=== PATIENT | female | born 1990 | race Caucasian/White ===

== ENCOUNTER 2019-09-16 04:54 | Inpatient (IN) | payer OTHER ==
[2019-09-14 10:43] LABS: ABSOLUTE EOSINOPHILS # (AUTO) 0.1 10^3/uL (0.0-0.6); ABSOLUTE LYMPHOCYTES (AUTO) 1.2 10^3/uL (0.5-4.7); ABSOLUTE MONOCYTES (AUTO) 0.3 10^3/uL (0.1-1.4); ABSOLUTE NEUT (AUTO) 5.7 10^3/uL (1.7-8.2); BASOPHILS % (AUTO) 0.4 % (0-2); EOSINOPHILS % (AUTO) 0.7 % (0-6); HEMATOCRIT 32.8 % (36.0-47.0); HEMOGLOBIN 10.7 g/dL (12.0-15.5); MEAN CORPUSCULAR HGB CONC 32.6 g/dL (32.0-36.0); MEAN CORPUSCULAR VOLUME 80 fl (80-97); MONOCYTES % (AUTO) 4.5 % (3-13); PLATELET COUNT 216 10^3/uL (150-450); RED BLOOD COUNT 4.11 10^6/uL (3.72-5.28); RED CELL DISTRIBUTION WIDTH 14.6 % (11.5-14.0); SEGMENTED NEUTROPHILS % (AUTO) 78.4 % (42-78); TOTAL CELLS COUNTED % (AUTO) 100 %; WHITE BLOOD COUNT 7.2 10^3/uL (4.0-10.5)
[2019-09-14 10:52] LABS: APPEARANCE,URINE CLOUDY; BILIRUBIN,URINE NEGATIVE (NEGATIVE); CALCIUM OXALATE CRYSTALS,URINE TOO NUMEROUS TO CNT /HPF; COLOR,URINE YELLOW; GLUCOSE, URINE NEGATIVE (NEGATIVE); KETONES,URINE NEGATIVE (NEGATIVE); LEUKOCYTE ESTERASE,URINE LARGE (NEGATIVE); NITRITE,URINE NEGATIVE (NEGATIVE); PROTEIN,URINE 30 mg/dL (NEGATIVE); URINE SPECIFIC GRAVITY 1.024
[2019-09-14 11:05] LABS: URINE AMPHETAMINES SCREEN NEGATIVE; URINE BARBITURATES SCREEN NEGATIVE; URINE BENZODIAZEPINES SCREEN NEGATIVE; URINE COCAINE SCREEN NEGATIVE; URINE MARIJUANA (THC) SCREEN NEGATIVE; URINE METHADONE SCREEN NEGATIVE; URINE PHENCYCLIDINE SCREEN NEGATIVE
[2019-09-16] MEDS ORDERED: RINGERS SOLUTION,LACTATED 1,000 ML IV PRN ×2 (05:00→09:01)
[2019-09-16] MEDS ORDERED: LACTATED RINGERS 1000 ML IV PRN (05:00)
[2019-09-16] MEDS ORDERED: CEFAZOLIN SODIUM 2 GM in DEXTROSE 5%-WATER 100 ML IV PRN (05:00)
[2019-09-16] MEDS ORDERED: LIDOCAINE 0.5% INJ-PF (5 MG/ML) 50 ML SDV SUBCUT PRN (05:00)
[2019-09-16] MEDS ORDERED: OXYTOCIN 10 UNIT/ML VIAL ONE (07:36)
[2019-09-16] MEDS ORDERED: FENTANYL CITRATE INJ/PF 100 MCG/2 ML AMPUL ONE (07:36)
[2019-09-16] MEDS ORDERED: MORPHINE SULFATE 10 MG/ML INJ ONE (07:37)
[2019-09-16] MEDS ORDERED: ONDANSETRON HCL INJ/PF 4 MG/2 ML SDV ONE (07:37)
[2019-09-16] MEDS ORDERED: MIDAZOLAM 2 MG/2 ML INJ ONE (07:37)
[2019-09-16] MEDS ORDERED: OXYTOCIN/NORMAL SALINE 20 UNIT/1,000 ML RTUINJ ONE ×2 (07:37→09:01)
[2019-09-16] MEDS ORDERED: ACETAMINOPHEN 1,000 MG/100 ML RTUPB IV PRN (09:01)
[2019-09-16] MEDS ORDERED: PROMETHAZINE HCL INJ 25 MG/1 ML VIAL IV PRN (09:01)
[2019-09-16] MEDS ORDERED: ACETAMINOPHEN 325 MG TABLET PO PRN (09:01)
[2019-09-16] MEDS ORDERED: HYDROMORPHONE HCL INJ/PF 2 MG/ML AMPULE IV PRN (09:01)
[2019-09-16] MEDS ORDERED: OXYTOCIN/NORMAL SALINE 20 UNIT/1,000 ML RTUINJ IV PRN (09:01)
--- NOTE | 2019-09-16 09:05 | PDOC DELIVERY SUMMARY ---
Delivery Summary - Maternal Hx : II Hx Para: I Hx # Term Pregnancies: 2 Number of Living Children: 1 LUPE: 09/22/19 Gestational Age: 39.0 Risk Factors: Other - macrosomia Ruptured Membranes: AROM Time of Rupture: 08:10 - Delivery Labor: Not In Labor Presentation: Vertex Heart Rate Monitoring: Externally Uterine Contraction Monitoring: External Support Person Present: Yes - PRESENT FOR DELIVERY Location: LD : Scheduled Placenta Description: normal appearing Number of Vessels (Cord): 3 Nuchal Cord: No Delivery of Placenta Date: 09/16/19 Delivery of Placenta Time: 08:25 Delivery Quantitative Blood Loss (QBL): 800 - Medications Type of Anesthesia:: Spinal - Assess and Care Baby 1 Male Delivery of Infant Date: 09/16/19 Delivery of Infant Time: 08:15 at 1 minute: 8 at 5 minutes: 9 Infant Delivery Weight: 4,725 Delivery Length: 21 in - Delivery Personnel Nursery RN: LORENZO BEATTY MD: ZAN TOLEDO
--- NOTE | 2019-09-16 09:10 | Operative Report ---
Operative Report DATE OF SURGERY: 09/16/19 PREOPERATIVE DIAGNOSIS: 1. Intrauterine at 39-0/7 weeks. 2. Suspec dianna macrosomia. 3. GBS negative. 4. Rh-. 5. Rubella immune. 6. Anemia POSTOPERATIVE DIAGNOSIS: Same OPERATION: Primary low transverse section SURGEON: ZAN RORDIGEZ ANESTHESIA: Spinal TISSUE REMOVED OR ALTERED: Placenta COMPLICATIONS: None QUANTITATIVE BLOOD LOSS: 800 INTRAOPERATIVE FINDINGS: Male fetus in a cephalic position; vacuum assisted delivery; Apgars 8 at 1, 9 at 5 with a weight of 10 pounds 2 ounces; normal-appearing uterus, bilateral tubes and ovaries PROCEDURE: The patient was taken to the operating room where spinal anesthesia was obtained and found to be adequate. She was then prepped and draped in the normal sterile fashion and placed in the dorsal supine position with a leftward tilt. A Pfannenstiel skin incision was then made and carried through to the underlying layers of the fascia with the scalpel. The fascia was incised in the midline and the incision extended laterally with the Michelle scissors. The superior aspect of the fascial incision was then grasped with Gianna clamps elevated and the underlying rectus muscles dissected off both bluntly and sharply. Attention was then turned to the inferior aspect of the fascial incision which in a similar fashion was grasped, tented up with Gianna clamps, and the rectus muscles dissected off both bluntly and sharply. The rectus muscles were then in the midline and the peritoneum was identified and entered both sharply and bluntly. The peritoneal incision was then extended superiorly and inferiorly with good visualization of the bladder. The bladder blade was inserted and the vesicouterine peritoneum identified grasped with Congolese pickups and entered sharply with the Metzenbaum scissors. This incision was then extended laterally with the Metzenbaum scissors and a bladder flap created digitally. The bladder blade was then reinserted and the lower uterine segment incised in a transverse fashion with the scalpel. The uterine incision was then extended bluntly and with the bandage scissors. The bladder blade was removed and the infant's head was delivered from cephalic presentation atraumatically, with the assistance of a vacuum. The cord doubly clamped and cut. The was handed off to waiting round up ring hand. The placenta was then delivered manually and the uterus exteriorized and cleared of all clots and debris. The uterine incision was then repaired with 0 Vicryl in a running locked fashion. 0-Chromic was used to obtain hemostasis via imbrication of the initial layer. The bladder flap was not repaired and a piece of Surgicel was placed in the area. The uterus was returned to the patient's abdomen and Interceed was placed overlying the uterine incision, as well as a piece placed vertically on the anterior surface of the uterus, to prevent adhesions. The gutters were cleared of all clots and debris. The peritoneum was then closed in a running fashion with 2-0 Vicryl. All operative sites were noted to be hemostatic. The fascia was reapproximated with 0 Vicryl in a running fashion from each lateral edge to the midline. The subcutaneous fat layer was then closed in an interrupted fashion with 3-0 vicryl. The skin was closed with 4-0 Monocryl in a running, subcuticular fashion. The patient tolerated the procedure well. Sponge, lap, needle and instrument counts are correct x 2. 2 g of Ancef were given prior to skin incision. The patient was taken to the recovery area awake and in stable condition.
[2019-09-16] MEDS ORDERED: ACETAMINOPHEN 1,000 MG/100 ML RTUPB IV ONE (09:44)
[2019-09-16] MEDS ORDERED: PHENYLEPHRINE HCL INJ/PF 10 MG/1 ML SDV ONE (09:46)
[2019-09-16] MEDS ORDERED: KETOROLAC TROMETHAMINE INJ/PF 30 MG/1 ML SDV ONE (10:14)
[2019-09-16] MEDS: KETOROLAC TROMETHAMINE INJ/PF 30 MG/1 ML SDV IV SCH ×2 (10:15→17:48)
[2019-09-16] MEDS: PRENATAL VITAMIN W DHA CAPSULE PO SCH (14:19)
[2019-09-16] MEDS: DOCUSATE SODIUM 100 MG CAPSULE PO SCH ×2 (14:19→17:47)
[2019-09-16] MEDS: OXYCODONE-ACETAMINOPHEN 5-325 MG TABLET PO PRN (23:14)
[2019-09-17] MEDS: KETOROLAC TROMETHAMINE INJ/PF 30 MG/1 ML SDV IV SCH (02:55)
[2019-09-17 06:57] LABS: HEMATOCRIT 25.8 % (36.0-47.0); MEAN CORPUSCULAR HEMOGLOBIN 26.1 pg (27.0-33.4); MEAN CORPUSCULAR HGB CONC 32.5 g/dL (32.0-36.0); MEAN CORPUSCULAR VOLUME 80 fl (80-97); PLATELET COUNT 167 10^3/uL (150-450); RED BLOOD COUNT 3.21 10^6/uL (3.72-5.28); RED CELL DISTRIBUTION WIDTH 14.9 % (11.5-14.0); WHITE BLOOD COUNT 8.9 10^3/uL (4.0-10.5)
[2019-09-17 07:00] LABS: HEMOGLOBIN 8.4 g/dL (12.0-15.5)
--- NOTE | 2019-09-17 09:07 | PDOC PROGRESS REPORT ---
Subjective-OB Progress Note for:: 09/17/19 Subjective: Doing well, no c/o, , OOB in room , eating bkf Physical Exam (OB) Vital Signs: Temp Pulse Resp BP Pulse Ox 98.7 F 69 16 119/64 99 09/17/19 07:26 09/17/19 07:26 09/17/19 07:26 09/17/19 07:26 09/17/19 07:26 Intake & Output 09/16/19 09/17/19 09/18/19 06:59 06:59 06:59 Intake Total 1100 Output Total 1700 Balance -600 - PIH/Pre-Eclampsia DTR's: 1 + Clonus: Negative Headache: Absent Epigastric Pain: No Visual Changes: No - Dressing Removed: No Incision: Dressing, Well Approximated Closure Type: op site - Lochia Lochia Amount: Scant < 10 ml Lochia Color: Rubra/Red - Abdomen Description: Soft Hernia Present: No Fundal Description: Firm, Midline Fundal Height: u/u - u/2 Objective-Diagnostic Laboratory: 09/17/19 05:54 09/17/19 05:54 WBC 8.9 RBC 3.21 L Hgb 8.4 L D Hct 25.8 L MCV 80 MCH 26.1 L MCHC 32.5 RDW 14.9 H Plt Count 167 Assessment and Plan(PN) - Assessment and Plan (1) Anemia Qualifiers: Other causes of anemia: acute posthemorrhagic Is this a current diagnosis for this admission?: Yes (2) Macrosomia Is this a current diagnosis for this admission?: Yes (3) S/P primary low transverse Is this a current diagnosis for this admission?: Yes - Time Spent with Patient Time with patient: Less than 15 minutes Medications reviewed and adjusted accordingly: Yes - Disposition Anticipated Discharge: Home Within: within 24 hours
[2019-09-17] MEDS: DOCUSATE SODIUM 100 MG CAPSULE PO SCH ×2 (09:19→17:17)
[2019-09-17] MEDS: IBUPROFEN 800 MG TABLET PO SCH ×3 (09:19→20:50)
[2019-09-17] MEDS: PRENATAL VITAMIN W DHA CAPSULE PO SCH (09:19)
[2019-09-17] MEDS: OXYCODONE-ACETAMINOPHEN 5-325 MG TABLET PO PRN ×3 (09:21→20:53)
[2019-09-17] MEDS ORDERED: IRON SUCROSE COMPLEX INJ/PF 100 MG/5 ML SDV IV ONE (10:00)
[2019-09-17] MEDS: SIMETHICONE 80 MG TAB.CHEW PO PRN ×2 (15:31→21:33)
[2019-09-18] MEDS: IBUPROFEN 800 MG TABLET PO SCH ×2 (02:11→08:37)
[2019-09-18] MEDS: OXYCODONE-ACETAMINOPHEN 5-325 MG TABLET PO PRN (07:46)
[2019-09-18] MEDS: DOCUSATE SODIUM 100 MG CAPSULE PO SCH (09:30)
[2019-09-18] MEDS: PRENATAL VITAMIN W DHA CAPSULE PO SCH (09:30)
--- NOTE | 2019-09-18 10:05 | PDOC PROGRESS REPORT ---
Subjective-OB Progress Note for:: 09/18/19 Subjective: Doing well, ready to go home, pain under control, ambulating, , voiding Physical Exam (OB) Vital Signs: Temp Pulse Resp BP Pulse Ox 99.3 F 71 18 124/73 100 09/18/19 07:46 09/18/19 07:46 09/18/19 07:46 09/18/19 07:46 09/18/19 07:46 Intake & Output 09/17/19 09/18/19 09/19/19 06:59 06:59 06:59 Intake Total 1100 800 Output Total 1700 Balance -600 800 - PIH/Pre-Eclampsia DTR's: 1 + Clonus: Negative Headache: Absent Epigastric Pain: No Visual Changes: No - Dressing Removed: No - opsite, small dry drain Incision: Dressing Closure Type: op site - Lochia Lochia Amount: Scant < 10 ml Lochia Color: Rubra/Red - Abdomen Description: Soft, Round Hernia Present: No Fundal Description: Firm, Midline Fundal Height: u/u - u/2 Objective-Diagnostic Laboratory: 09/17/19 05:54 Assessment and Plan(PN) - Assessment and Plan (1) Anemia Qualifiers: Other causes of anemia: acute posthemorrhagic Is this a current diagnosis for this admission?: Yes (2) Macrosomia Is this a current diagnosis for this admission?: Yes (3) S/P primary low transverse Is this a current diagnosis for this admission?: Yes - Time Spent with Patient Time with patient: Less than 15 minutes Medications reviewed and adjusted accordingly: Yes - Disposition Anticipated Discharge: Home Within: within 24 hours
--- NOTE | 2019-09-18 10:10 | PDOC DISCHARGE SUMMARY ---
Impression - Admit/DC Date/PCP Admission Date/Primary Care Provider: 09/16/19 04:54 FRANCISCO PEREZ PA-C Discharge Date: 09/18/19 - Discharge Diagnosis (1) Anemia Is this a current diagnosis for this admission?: Yes (2) Macrosomia Is this a current diagnosis for this admission?: Yes (3) S/P primary low transverse Is this a current diagnosis for this admission?: Yes - Additional Information Resuscitation Status: Full Code Discharge Diet: As Tolerated, Regular Discharge Activity: Activity As Tolerated, No Lifting Over 10 Pounds, No Lifting/Push/Pulling, Pelvic Rest, No tub bath Referrals: [facility] [Provider Group] (rtc Thursday) Prescriptions: Oxycodone HCl/Acetaminophen [Percocet 5-325 mg Tablet] 1 tab PO Q4HP PRN #20 tablet PRN Reason: Ibuprofen [Motrin 800 mg Tablet] 800 mg PO Q6A #60 tablet Home Medications: Pnv with Ca,No.72/Iron/FA [ Plus Tablet] 1 tab PO DAILY 01/17/14 Iron,Carb/Vit C/Vit B12/Folic [Iron 100 Plus Tablet] 1 tab PO DAILY 09/14/19 Ibuprofen [Motrin 800 mg Tablet] 800 mg PO Q6A #60 tablet 09/18/19 Oxycodone HCl/Acetaminophen [Percocet 5-325 mg Tablet] 1 tab PO Q4HP PRN #20 tablet 09/18/19 HPI Gestational Age: 38.6 Reason(s) for Admission: Ceasarean Section-Repeat Procedures: NST, Ultrasound Intrapartum Procedure(s): : Low Cervical, Transverse - male Hospital Course Hospital Course: routine Results Laboratory Results: WBC 8.9 10^3/uL (4.0-10.5) 09/17/19 05:54 RBC 3.21 10^6/uL (3.72-5.28) L 09/17/19 05:54 Hgb 8.4 g/dL (12.0-15.5) L D 09/17/19 05:54 Hct 25.8 % (36.0-47.0) L 09/17/19 05:54 MCV 80 fl (80-97) 09/17/19 05:54 MCH 26.1 pg (27.0-33.4) L 09/17/19 05:54 MCHC 32.5 g/dL (32.0-36.0) 09/17/19 05:54 RDW 14.9 % (11.5-14.0) H 09/17/19 05:54 Plt Count 167 10^3/uL (150-450) 09/17/19 05:54 Lymph % (Auto) 16.0 % (13-45) 09/14/19 09:33 [place] % (Auto) 4.5 % (3-13) 09/14/19 09:33 Eos % (Auto) 0.7 % (0-6) 09/14/19 09:33 Baso % (Auto) 0.4 % (0-2) 09/14/19 09:33 Absolute Neuts (auto) 5.7 10^3/uL (1.7-8.2) 09/14/19 09:33 Absolute Lymphs (auto) 1.2 10^3/uL (0.5-4.7) 09/14/19 09:33 Absolute Monos (auto) 0.3 10^3/uL (0.1-1.4) 09/14/19 09:33 Absolute Eos (auto) 0.1 10^3/uL (0.0-0.6) 09/14/19 09:33 Absolute Basos (auto) 0.0 10^3/uL (0.0-0.2) 09/14/19 09:33 Seg Neutrophils % 78.4 % (42-78) H 09/14/19 09:33 Urine Color YELLOW 09/14/19 09:25 Urine Appearance CLOUDY 09/14/19 09:25 Urine pH 6.0 (5.0-9.0) 09/14/19 09:25 Ur Specific [place] 1.024 09/14/19 09:25 Urine Protein 30 mg/dL (NEGATIVE) H 09/14/19 09:25 Urine Glucose (UA) NEGATIVE mg/dL (NEGATIVE) 09/14/19 09:25 Urine Ketones NEGATIVE mg/dL (NEGATIVE) 09/14/19 09:25 Urine Blood NEGATIVE (NEGATIVE) 09/14/19 09:25 Urine Nitrite NEGATIVE (NEGATIVE) 09/14/19 09:25 Urine Bilirubin NEGATIVE (NEGATIVE) 09/14/19 09:25 Urine Urobilinogen 2.0 mg/dL (<2.0) H 09/14/19 09:25 Ur Leukocyte Esterase LARGE (NEGATIVE) H 09/14/19 09:25 Urine WBC (Auto) 22 /HPF 09/14/19 09:25 Urine RBC (Auto) 4 /HPF 09/14/19 09:25 Urine Bacteria (Auto) 2+ /HPF 09/14/19 09:25 Squamous Epi Cells Auto 25 /HPF 09/14/19 09:25 U Non-Squamous Epis Auto 1 /HPF 09/14/19 09:25 Calcium Oxalate Cr Auto TOO NUMEROUS TO CNT /HPF 09/14/19 09:25 Urine Mucus (Auto) MOD /LPF 09/14/19 09:25 Urine Ascorbic Acid NEGATIVE (NEGATIVE) 09/14/19 09:25 Urine Opiates Screen NEGATIVE 09/14/19 09:25 Urine Methadone Screen NEGATIVE 09/14/19 09:25 Ur Barbiturates Screen NEGATIVE 09/14/19 09:25 Ur Phencyclidine Scrn NEGATIVE 09/14/19 09:25 Ur Amphetamines Screen NEGATIVE 09/14/19 09:25 U Benzodiazepines Scrn NEGATIVE 09/14/19 09:25 Urine Cocaine Screen NEGATIVE 09/14/19 09:25 U Marijuana (THC) Screen NEGATIVE 09/14/19 09:25 Blood Type O NEGATIVE 09/14/19 09:33 Antibody Screen POSITIVE 09/14/19 09:33 Antibody Identification RHOGAM INDUCED ANTI-D 09/14/19 09:33 Crossmatch See Detail 09/14/19 09:33 Plan Health Concerns: routine post op Plan of Treatment: d/c home, pain medication Goals: routine post op course, baby home with mom Time Spent: Less than 30 Minutes
[2019-09-18 11:29] VITALS: BP 113/71
== END 2019-09-18 12:15 | disposition home or self-care (01) | DRG 788 ==
LOC: 2S 04:54
PROVIDERS: ADMIT Obstetrics & Gynecology; ATTEND Obstetrics & Gynecology
PROC: 10D00Z1 Extraction of Products of Conception, Low, Open Approach (ICD-10-PCS; principal; 2019-09-16 07:45)
DX: O36.63X0 Maternal care for excessive fetal growth, third trimester, not applicable or unspecified (principal); O99.844 Bariatric surgery status complicating childbirth; O99.02 Anemia complicating childbirth; D64.9 Anemia, unspecified; Z3A.38 38 weeks gestation of pregnancy; Z37.0 Single live birth
CPT/HCPCS: 1961; 36415; 59025; 80307; 81001; 85025; 85027; 86850; 86870; 86900; 86901; 86920; 86922; 94760; 94799; C1765; J0131; J0690; J1170; J1885; J2250; J2270; J2370; J2405; J2590; J3010; J3490; J7060; J7120

== ENCOUNTER 2020-12-11 04:52 | Inpatient (IN) | payer OTHER ==
[2020-12-06 09:35] LABS: ABSOLUTE EOSINOPHILS # (AUTO) 0.1 10^3/uL (0.0-0.6); ABSOLUTE LYMPHOCYTES (AUTO) 1.3 10^3/uL (0.5-4.7); ABSOLUTE MONOCYTES (AUTO) 0.5 10^3/uL (0.1-1.4); ABSOLUTE NEUT (AUTO) 7.5 10^3/uL (1.7-8.2); BASOPHILS % (AUTO) 0.4 % (0-2); EOSINOPHILS % (AUTO) 0.5 % (0-6); HEMOGLOBIN 8.8 g/dL (12.0-15.5); LYMPHOCYTES % (AUTO) 13.5 % (13-45); MEAN CORPUSCULAR HEMOGLOBIN 22.1 pg (27.0-33.4); MEAN CORPUSCULAR HGB CONC 32.7 g/dL (32.0-36.0); MEAN CORPUSCULAR VOLUME 68 fl (80-97); MONOCYTES % (AUTO) 5.8 % (3-13); PLATELET COUNT 247 10^3/uL (150-450); RED CELL DISTRIBUTION WIDTH 16.4 % (11.5-14.0); SEGMENTED NEUTROPHILS % (AUTO) 79.8 % (42-78); TOTAL CELLS COUNTED % (AUTO) 100 %; WHITE BLOOD COUNT 9.4 10^3/uL (4.0-10.5)
[2020-12-06 09:40] LABS: APPEARANCE,URINE SLIGHTLY-CLOUDY; BILIRUBIN,URINE NEGATIVE (NEGATIVE); CALCIUM OXALATE CRYSTALS,URINE MANY /HPF; COLOR,URINE YELLOW; GLUCOSE, URINE 50 mg/dL (NEGATIVE); KETONES,URINE TRACE mg/dL (NEGATIVE); LEUKOCYTE ESTERASE,URINE SMALL (NEGATIVE); NITRITE,URINE NEGATIVE (NEGATIVE); PROTEIN,URINE 30 mg/dL (NEGATIVE); URINE SPECIFIC GRAVITY 1.019
[2020-12-06 10:16] LABS: URINE AMPHETAMINES SCREEN NEGATIVE; URINE BARBITURATES SCREEN NEGATIVE; URINE BENZODIAZEPINES SCREEN NEGATIVE; URINE COCAINE SCREEN NEGATIVE; URINE MARIJUANA (THC) SCREEN NEGATIVE; URINE METHADONE SCREEN NEGATIVE; URINE PHENCYCLIDINE SCREEN NEGATIVE
[2020-12-11] MEDS ORDERED: RINGERS SOLUTION,LACTATED 1,000 ML IV PRN ×2 (05:00→09:46)
[2020-12-11] MEDS ORDERED: CEFAZOLIN 2 GM/D5W RTU 2 GM/50 ML RTUPB IV PRN (05:00)
[2020-12-11] MEDS ORDERED: LACTATED RINGERS 1000 ML IV PRN (05:00)
[2020-12-11] MEDS ORDERED: NORMAL SALINE 250 ML IV PRN ×2 (07:22)
[2020-12-11] MEDS ORDERED: KETOROLAC TROMETHAMINE INJ/PF 30 MG/1 ML SDV ONE (07:37)
[2020-12-11] MEDS ORDERED: MIDAZOLAM 2 MG/2 ML INJ ONE (07:37)
[2020-12-11] MEDS ORDERED: OXYTOCIN 10 UNIT/ML VIAL ONE ×2 (07:37→09:38)
[2020-12-11] MEDS ORDERED: EPHEDRINE SULFATE INJ 50 MG/1 ML AMPULE ONE (07:37)
[2020-12-11] MEDS ORDERED: FENTANYL CITRATE INJ/PF 100 MCG/2 ML AMPUL ONE (07:37)
[2020-12-11] MEDS ORDERED: DEXAMETHASONE SOD PHOSPHATE INJ 4 MG/1 ML VIAL ONE (07:38)
[2020-12-11] MEDS ORDERED: MORPHINE SULFATE 10 MG/ML INJ ONE (07:38)
[2020-12-11] MEDS ORDERED: PHENYLEPHRINE HCL INJ/PF 10 MG/1 ML SDV ONE (07:38)
[2020-12-11] MEDS ORDERED: ONDANSETRON HCL INJ/PF 4 MG/2 ML SDV ONE (07:38)
[2020-12-11] MEDS ORDERED: ACETAMINOPHEN 1,000 MG/100 ML RTUPB IV ONE (07:38)
[2020-12-11 07:42] LABS: HEMOGLOBIN 8.9 g/dL (12.0-15.5); MEAN CORPUSCULAR HEMOGLOBIN 21.9 pg (27.0-33.4); MEAN CORPUSCULAR HGB CONC 31.7 g/dL (32.0-36.0); MEAN CORPUSCULAR VOLUME 69 fl (80-97); PLATELET COUNT 227 10^3/uL (150-450); RED BLOOD COUNT 4.06 10^6/uL (3.72-5.28); RED CELL DISTRIBUTION WIDTH 17.3 % (11.5-14.0); WHITE BLOOD COUNT 10.1 10^3/uL (4.0-10.5)
[2020-12-11] MEDS ORDERED: LIDOCAINE 1% INJ-PF (10 MG/ML) 30 ML SDV ONE (08:31)
[2020-12-11] MEDS ORDERED: FENTANYL CITRATE INJ/PF 100 MCG/2 ML AMPUL IV PRN ×3 (09:29)
[2020-12-11] MEDS ORDERED: DIPHENHYDRAMINE HCL 50 MG/ML VIAL IV PRN (09:29)
[2020-12-11] MEDS ORDERED: MORPHINE SULFATE 10 MG/ML INJ IV PRN ×2 (09:29→09:46)
[2020-12-11] MEDS ORDERED: OXYCODONE-ACETAMINOPHEN 5-325 MG TABLET PO PRN ×2 (09:29)
[2020-12-11] MEDS ORDERED: ONDANSETRON HCL INJ/PF 4 MG/2 ML SDV IV PRN (09:29)
[2020-12-11] MEDS ORDERED: MEPERIDINE HCL/PF INJ 25 MG/1 ML DISP.SYRIN IV PRN (09:29)
[2020-12-11] MEDS ORDERED: PROMETHAZINE HCL INJ 25 MG/1 ML VIAL IV PRN ×2 (09:29→09:46)
[2020-12-11] MEDS ORDERED: ACETAMINOPHEN 1,000 MG/100 ML RTUPB IV PRN (09:46)
[2020-12-11] MEDS ORDERED: SIMETHICONE 80 MG TAB.CHEW PO PRN (09:46)
[2020-12-11] MEDS ORDERED: OXYTOCIN/0.9 % SODIUM CHLORIDE 30 UNIT/500 ML RTUINJ IV PRN (09:46)
[2020-12-11] MEDS ORDERED: DIPH/PERTUSS(ACELL)/TETANUS VAC/PF 0.5 ML SYR (>=10YO) IM PRN (09:46)
[2020-12-11] MEDS ORDERED: ACETAMINOPHEN 325 MG TABLET PO PRN (09:46)
[2020-12-11] MEDS ORDERED: MEASLES,MUMPS&RUBELLA VACC/PF 0.5 ML VIAL SUBCUT PRN (09:46)
--- NOTE | 2020-12-11 10:05 | Operative Report ---
Operative Report DATE OF SURGERY: 12/11/20 PREOPERATIVE DIAGNOSIS: IUP at 39+ weeks, previous desires repeat POSTOPERATIVE DIAGNOSIS: Same OPERATION: Repeat low transverse hysterotomy section SURGEON: KT ARAGON ANESTHESIA: Spinal COMPLICATIONS: None ESTIMATED BLOOD LOSS: 850 cc INTRAOPERATIVE FINDINGS: Male infant cephalic presentation Apgars of 8 and 9, uterine window PROCEDURE: PROCEDURE IN DETAIL: The patient was taken to the operating room, prepared and draped in a normal sterile fashion in a supine position with a leftward tilt. A transverse skin incision was made with a scalpel and carried through to the underlying layer of fascia with the same scalpel. The fascia was excised in the midline and extended laterally with Amie. The fascia was then dissected from the rectus muscle sharply with Amie and the rectus muscle was divided and the peritoneal cavity was entered sharply with the same Metzenbaum. With good visualization of the bladder and the uterus the bladder blade was inserted. The hysterotomy was nicked with a scalpel and extended laterally with surgeon finger fraction. The infant was then delivered atraumatically. The nose and mouth were suctioned with a suction bulb, the cord was clamped and cut and handed off to awaiting pediatricians. Cord blood was collected. The placenta was removed manually. The uterus was exteriorized and cleared of clots and debris. The hysterotomy was closed with 0 Monocryl in a running, locked fashion. A second layer of the same suture was used to imbricate to ensure hemostasis. The uterus was returned to the abdomen and peritoneal cavity was cleared of clots and debris. The rectus muscle and peritoneum were repaired with mattress stitch of 2-0 Chromic. The fascia was closed with 0-Vicryl. The subcutaneous layer was closed with plain catgut and the skin was closed with 4-0 Vicryl. The patient tolerated the procedure well. Sponge, lap, and needle counts correct x2 and the patient was taken to recovery in stable condition.
--- NOTE | 2020-12-11 10:13 | Birth Certificate Data ---
Cert Data Datetime Report Generated by CPN: 12/11/2020 10:13 CERTIFICATE DATA Delivery Provider: Christelle Garcia MD (12/11/2020 09:43:Tere Moreland RN) 48a. Number of Prev Live Births: 2 (12/11/2020 09:17:Tere Moreland RN) 48b. Now Livin (12/11/2020 09:17:BAY Turk 48c. Live Births Now : 0 (12/11/2020 09:17:QS system process) Mother's Height 50b. Height Inches: 67 (12/11/2020 04:53:QS system process) Mother's Weight 51b. Weight at Delivery (lbs): 233 (12/11/2020 04:53:QS system process) Onset of Labor 56a. PROM >12 Hrs: 0.00 (12/11/2020 09:17:QS system process) 57a. Induction of Labor: N/A (12/11/2020 09:17:Tere Moreland RN) 57c. Non-Vertex Presentation A: Vertex (12/11/2020 09:17:Tere Moreland RN) 57d. Steroids - Lung Mat: None (12/11/2020 09:17:Tere Moreland RN) 57d. Steroids - Lung Mat: Not Applicable (12/11/2020 09:17:Tere Moreland RN) 57e. Antibiotics During Labor: 12/11/2020 08:40 (12/11/2020 09:17:Tere Moreland RN) 57f. Mat [place] or Temp >100.4: 97.2 (12/11/2020 09:17:Tere Moreland RN) 57g. Moderate/Heavy Meconium: Clear (12/11/2020 09:17:Tere Moreland RN) 57h. Intolerance of Labor: Repeat Elective (12/11/2020 09:17:Tere Moreland RN) : N/A (12/11/2020 09:17:Tere Moreland RN) 57i. Epidural/Spinal Anesthesia: None (12/11/2020 09:17:Tere Moreland RN) Method of Delivery 58a. Forceps - Unsuccessful A: N/A (12/11/2020 09:17:Tere Moreland RN) 58b. Vacuum - Unsuccessful A: N/A (12/11/2020 09:17:Tere Moreland RN) 58c. Presentation at 58c. Presentation at - A : Vertex (12/11/2020 09:17:Tere Moreland RN) 58c. Presentation at - A : N/A (12/11/2020 09:17:Tere Moreland RN) 58c. Presentation at - A : Cephalic (12/11/2020 09:17:Tere Moreland RN) Final Route and Method of Del 58d. Baby A Route/Delivery: (12/11/2020 09:17:Delicia Greenwood RN) 58e. Trial of Labor Attempted: No (12/11/2020 09:17:Tere Moreland RN) 58e. Trial of Labor Attempted A: N/A (12/11/2020 09:17:Tere Moreland RN) 58e. Trial of Labor Attempted B: N/A (12/11/2020 09:17:Tere Moreland RN) Maternal Morbidity 59b. 3rd or 4th Degree Lacs: None (12/11/2020 09:17:Tere Sales, RN) Birthweight Baby A: 4095 (12/11/2020 09:17:Sandy Vik, RN) 60a. Pounds : 9 (12/11/2020 09:17:QS system process) 60b. Ounces: 0 (12/11/2020 09:17:QS system process) 61. GA at Delivery Baby A: 39.0 (12/11/2020 09:17:Tere Sales, RN) : Full Term- 39- 40.6 Weeks (12/11/2020 09:17:QS system process) 62a. 5 Minute Baby A: 9 (12/11/2020 09:17:QS system process)
--- NOTE | 2020-12-11 10:13 | Delivery Summary ---
Del Sum A-C Datetime Report Generated by CPN: 12/11/2020 10:13 DELIVERY PERSONNEL DELIVERY PERSONNEL: [id number] Delivery Doctor:: Christelle Garcia MD MANUFACTURING QUALITY ENGINEER:: Kasia Reilly, MANUFACTURING QUALITY ENGINEER Crutcher Helper:: Tere Moreland, RN Nursery Nurse:: Delicia Greenwood RN Nursery Nurse:: Tere Moreland, HAMMAD Feather Baler/OUTSIDE MEDICAL SALES REPRESENTATIVE: Angy Day, PARAMEDIC Feather Baler/OUTSIDE MEDICAL SALES REPRESENTATIVE: Lluvia Self, ST MATERNAL INFORMATION Delivery Anesthesia: Spinal Medications After Delivery: Pitocin Drip 20 Units/1000ml NSS Delivery QBL: 290 Maternal Complications: None LABOR SUMMARY EDC: 12/18/2020 00:00 No. Babies in Womb: 1 Attempted: No Labor Anesthesia: None LABOR INFORMATION Reason for Induction: Not Applicable Oxytocin: N/A Group B Beta Strep: Negative Antibiotics # of Doses: 1 Antibiotics Time of Last Dose: 12/11/2020 08:40 Name of Antibiotic Given: Ancef 2g Steroids Given: None Reason Steroids Not Administered: Not Applicable MEMBRANES Membranes Rupture Method: Artificial Rupture of Membranes: 12/11/2020 08:59 Length of Rupture (hr): 0.00 Amniotic Fluid Color: Clear Amniotic Fluid Amount: Large Amniotic Fluid Odor: Normal STAGES OF LABOR Stage 3 hr: 0 Stage 3 min: 2 VAGINAL DELIVERY Episiotomy: None Laceration #1: None Laceration Extension #1: N/A Laceration Repair: Not Applicable Sponge Count Correct: N/A Sharps Count Correct: N/A CSECTION DELIVERY Primary Indication: Repeat Elective Secondary Indication: N/A CSection Urgency: Scheduled CSection Incidence: Repeat Labor: No Labor Elective: Elective CSection Incision: Lower Uterine Transverse BABY A INFORMATION Infant Delivery Date/Time: 12/11/2020 08:59 Method of Delivery: Nurse Controlled Delivery: No Born in Route : No : N/A Forceps: N/A Vacuum Extraction: N/A Shoulder Dystocia : No PRESENTATION/POSITION BABY A Presentation: Cephalic Cephalic Presentation: Vertex Vertex Position: Left Occipital Transverse Breech Presentation: N/A PLACENTA INFORMATION BABY A Placenta Delivery Time : 12/11/2020 09:01 Placenta Method of Delivery: Manual Removal Placenta Status: Delivered SCORES BABY A Heart Rate 1 min: >100 bpm Resp Effort 1 min: Good Cry Reflex Irritability 1 min: Cough or Sneeze or Pulls Away Muscle Tone 1 min: Active Motion Color 1 min: Body [place], Extremities Blue Resuscitation Effort 1 min: Tactile Stimulation SCORE 1 MIN: 9 Heart Rate 5 min: >100 bpm Resp Effort 5 min: Good Cry Reflex Irritability 5 min: Cough or Sneeze or Pulls Away Muscle Tone 5 min: Active Motion Color 5 min: Body [place], Extremities Blue Resuscitation Effort 5 min: N/A SCORE 5 MIN: 9 INFANT INFORMATION BABY A Gestational Age at Delivery: 39.0 Gestational Status: Full Term- 39- 40.6 Weeks Outcome : Liveborn Condition : Stable Sex: Male IDENTIFICATION BABY A Infant Verification Date/Time: 12/11/2020 09:10 ID Band Number: [id number] Mother's Name Verified: Yes RN Verifying : Felix Moreland RN Additional Verifying Personnel: Sridevi Greenwood RN WEIGHT/LENGTH BABY A Birthweight (gm): 4095 Weight (lb): 9 Infant Weight (oz): 0 Infant Length (in): 22.00 Length (cm): 55.88 CORD INFORMATION BABY A No. Cord Vessels: 3 Nuchal Cord : Around Neck x1, Loose Cord Blood Taken: Yes-For Eval (Mom's Blood Type - or O+) Suction: None BABY B INFORMATION : N/A
[2020-12-11] MEDS ORDERED: OXYCODONE-ACETAMINOPHEN 5-325 MG TABLET ONE (10:39)
[2020-12-11] MEDS: DOCUSATE SODIUM 100 MG CAPSULE PO SCH ×2 (12:28→18:11)
[2020-12-11] MEDS: PRENATAL VITAMIN W DHA CAPSULE PO SCH (12:28)
[2020-12-11] MEDS ORDERED: KETOROLAC TROMETHAMINE INJ/PF 30 MG/1 ML SDV IV SCH (14:00)
[2020-12-11] MEDS: OXYCODONE-ACETAMINOPHEN 5-325 MG TABLET PO PRN ×2 (15:52→23:11)
[2020-12-11] MEDS: KETOROLAC TROMETHAMINE INJ/PF 30 MG/1 ML SDV IV SCH (18:13)
[2020-12-12] MEDS: KETOROLAC TROMETHAMINE INJ/PF 30 MG/1 ML SDV IV SCH (01:24)
[2020-12-12] MEDS: OXYCODONE-ACETAMINOPHEN 5-325 MG TABLET PO PRN ×3 (06:33→21:42)
[2020-12-12 07:31] LABS: HEMATOCRIT 24.2 % (36.0-47.0); MEAN CORPUSCULAR HEMOGLOBIN 21.5 pg (27.0-33.4); MEAN CORPUSCULAR HGB CONC 31.4 g/dL (32.0-36.0); MEAN CORPUSCULAR VOLUME 69 fl (80-97); PLATELET COUNT 197 10^3/uL (150-450); RED BLOOD COUNT 3.53 10^6/uL (3.72-5.28); RED CELL DISTRIBUTION WIDTH 17.1 % (11.5-14.0); WHITE BLOOD COUNT 11.7 10^3/uL (4.0-10.5)
[2020-12-12 07:52] LABS: HEMOGLOBIN 7.6 g/dL (12.0-15.5)
[2020-12-12] MEDS ORDERED: IRON SUCROSE COMPLEX INJ/PF 100 MG/5 ML SDV IV ONE (08:49)
[2020-12-12] MEDS: PRENATAL VITAMIN W DHA CAPSULE PO SCH (09:28)
[2020-12-12] MEDS: DOCUSATE SODIUM 100 MG CAPSULE PO SCH ×2 (09:28→18:44)
[2020-12-12] MEDS: IBUPROFEN 800 MG TABLET PO SCH ×3 (09:29→21:41)
--- NOTE | 2020-12-12 10:26 | PDOC PROGRESS REPORT ---
Subjective-OB Progress Note for:: 12/12/20 Subjective: Pt doing well, reports light bleeding, reg diet and voiding well w + flatus. Physical Exam (OB) Vital Signs: Temp Pulse Resp BP Pulse Ox 97.4 F 64 16 102/65 100 12/12/20 07:47 12/12/20 07:47 12/12/20 07:47 12/12/20 07:47 12/12/20 07:47 Intake & Output 12/11/20 12/12/20 12/13/20 06:59 06:59 06:59 Intake Total 640 300 Output Total 750 Balance -110 300 - Dressing Removed: No - opsite clean, dry and intact Incision: Dressing, Well Approximated - Maternal Morbidity 59. Maternal Morbidity (serious complications experinced by the mother associated with labor and delivery: None of the above - Lochia Lochia Amount: Scant < 10 ml Lochia Color: Rubra/Red - Abdomen Description: Soft Hernia Present: No Fundal Description: Firm, Midline Fundal Height: u/u - u/2 Objective-Diagnostic Laboratory: 12/12/20 06:39 12/12/20 06:39 WBC 11.7 H RBC 3.53 L Hgb 7.6 L Hct 24.2 L MCV 69 L MCH 21.5 L MCHC 31.4 L RDW 17.1 H Plt Count 197 Assessment and Plan(PN) - Assessment and Plan (1) Anemia Qualifiers: Anemia type: iron deficiency Iron deficiency anemia type: unspecified iron deficiency Qualified Code(s): D50.9 - Iron deficiency anemia, unspecified Is this a current diagnosis for this admission?: Yes (2) S/P repeat low transverse Is this a current diagnosis for this admission?: Yes - Time Spent with Patient Time with patient: Less than 15 minutes Medications reviewed and adjusted accordingly: Yes - Disposition Anticipated Discharge Disposition: Home, Self Care Anticipated Discharge Timeframe: within 24 hours
[2020-12-13] MEDS: IBUPROFEN 800 MG TABLET PO SCH ×2 (03:36→09:12)
[2020-12-13] MEDS: DOCUSATE SODIUM 100 MG CAPSULE PO SCH (09:12)
[2020-12-13] MEDS: PRENATAL VITAMIN W DHA CAPSULE PO SCH (09:14)
--- NOTE | 2020-12-13 10:12 | PDOC DISCHARGE SUMMARY ---
Impression - Admit/DC Date/PCP Admission Date/Primary Care Provider: 12/11/20 04:52 FRANCISCO PEREZ PA-C Discharge Date: 12/13/20 - Discharge Diagnosis (1) Anemia Is this a current diagnosis for this admission?: Yes (2) S/P repeat low transverse Is this a current diagnosis for this admission?: Yes - Additional Information Discharge Diet: Regular Discharge Activity: Balance Activity w/Rest, No Lifting Over 10 Pounds, No Lifting/Push/Pulling, Pelvic Rest, No tub bath Referrals: FRANCISCO PEREZ PA-C [Primary Care Provider] - Prescriptions: Ibuprofen [Motrin 800 mg Tablet] 800 mg PO Q8HP PRN #60 tablet PRN Reason: Oxycodone HCl/Acetaminophen [Percocet 5-325 mg Tablet] 1 tab PO Q4HP PRN #20 tablet PRN Reason: Home Medications: Pnv with Ca,No.72/Iron/FA [ Plus Tablet] 1 tab PO DAILY 01/17/14 Cyanocobalamin (Vitamin B-12) [Vitamin B-12 Inj 1000 Mcg/1 ml Vial] 1,000 mcg IM ASDIR PRN 12/06/20 Ibuprofen [Motrin 800 mg Tablet] 800 mg PO Q8HP PRN #60 tablet 12/13/20 Oxycodone HCl/Acetaminophen [Percocet 5-325 mg Tablet] 1 tab PO Q4HP PRN #20 tablet 12/13/20 Hospital Course 59. Maternal Morbidity (serious complications experinced by the mother associated with labor and delivery: None of the above Results Laboratory Results: WBC 11.7 10^3/uL (4.0-10.5) H 12/12/20 06:39 RBC 3.53 10^6/uL (3.72-5.28) L 12/12/20 06:39 Hgb 7.6 g/dL (12.0-15.5) L 12/12/20 06:39 Hct 24.2 % (36.0-47.0) L 12/12/20 06:39 MCV 69 fl (80-97) L 12/12/20 06:39 MCH 21.5 pg (27.0-33.4) L 12/12/20 06:39 MCHC 31.4 g/dL (32.0-36.0) L 12/12/20 06:39 RDW 17.1 % (11.5-14.0) H 12/12/20 06:39 Plt Count 197 10^3/uL (150-450) 12/12/20 06:39 Lymph % (Auto) 13.5 % (13-45) 12/06/20 08:41 [place] % (Auto) 5.8 % (3-13) 12/06/20 08:41 Eos % (Auto) 0.5 % (0-6) 12/06/20 08:41 Baso % (Auto) 0.4 % (0-2) 12/06/20 08:41 Absolute Neuts (auto) 7.5 10^3/uL (1.7-8.2) 12/06/20 08:41 Absolute Lymphs (auto) 1.3 10^3/uL (0.5-4.7) 12/06/20 08:41 Absolute Monos (auto) 0.5 10^3/uL (0.1-1.4) 12/06/20 08:41 Absolute Eos (auto) 0.1 10^3/uL (0.0-0.6) 12/06/20 08:41 Absolute Basos (auto) 0.0 10^3/uL (0.0-0.2) 12/06/20 08:41 Seg Neutrophils % 79.8 % (42-78) H 12/06/20 08:41 Urine Color YELLOW 12/06/20 08:33 Urine Appearance SLIGHTLY-CLOUDY 12/06/20 08:33 Urine pH 5.0 (5.0-9.0) 12/06/20 08:33 Ur Specific [place] 1.019 12/06/20 08:33 Urine Protein 30 mg/dL (NEGATIVE) H 12/06/20 08:33 Urine Glucose (UA) 50 mg/dL (NEGATIVE) H 12/06/20 08:33 Urine Ketones TRACE mg/dL (NEGATIVE) H 12/06/20 08:33 Urine Blood NEGATIVE (NEGATIVE) 12/06/20 08:33 Urine Nitrite NEGATIVE (NEGATIVE) 12/06/20 08:33 Urine Bilirubin NEGATIVE (NEGATIVE) 12/06/20 08:33 Urine Urobilinogen 4.0 mg/dL (<2.0) H 12/06/20 08:33 Ur Leukocyte Esterase SMALL (NEGATIVE) H 12/06/20 08:33 Urine WBC (Auto) 2 /HPF 12/06/20 08:33 Urine RBC (Auto) 2 /HPF 12/06/20 08:33 U Hyaline Cast (Auto) 1 /LPF 12/06/20 08:33 Squamous Epi Cells Auto 7 /HPF 12/06/20 08:33 Calcium Oxalate Cr Auto MANY /HPF 12/06/20 08:33 Urine Mucus (Auto) MOD /LPF 12/06/20 08:33 Urine Ascorbic Acid NEGATIVE (NEGATIVE) 12/06/20 08:33 Urine Opiates Screen NEGATIVE 12/06/20 08:33 Urine Methadone Screen NEGATIVE 12/06/20 08:33 Ur Barbiturates Screen NEGATIVE 12/06/20 08:33 Ur Phencyclidine Scrn NEGATIVE 12/06/20 08:33 Ur Amphetamines Screen NEGATIVE 12/06/20 08:33 U Benzodiazepines Scrn NEGATIVE 12/06/20 08:33 Urine Cocaine Screen NEGATIVE 12/06/20 08:33 U Marijuana (THC) Screen NEGATIVE 12/06/20 08:33 COVID-19 Source See comment 12/06/20 08:29 COVID-19 (HERMILA) Not Detected (Not Detect) 12/06/20 08:29 Blood Type O NEGATIVE 12/10/20 09:38 Blood Type Confirm O NEGATIVE 12/10/20 09:38 Antibody Screen POSITIVE 12/10/20 09:38 Antibody Identification RHOGAM INDUCED ANTI-D 12/10/20 09:38 Crossmatch See Detail 12/10/20 09:38 Plan Health Concerns: continue follow up at [facility] for anemia Plan of Treatment: follow up at [facility] in one week for incision check
[2020-12-13 12:08] VITALS: BP 113/53
[2020-12-16] MEDS ORDERED: IBUPROFEN 800 MG TABLET PO SCH
== END 2020-12-13 12:40 | disposition home or self-care (01) | DRG 788 ==
LOC: 2S 04:52
PROVIDERS: ADMIT Obstetrics & Gynecology; ATTEND Obstetrics & Gynecology
PROC: 10D00Z1 Extraction of Products of Conception, Low, Open Approach (ICD-10-PCS; principal; 2020-12-11)
DX: O34.211 Maternal care for low transverse scar from previous cesarean delivery (principal); Z20.822 Contact with and (suspected) exposure to COVID-19; O99.02 Anemia complicating childbirth; D50.9 Iron deficiency anemia, unspecified; O69.81X0 Labor and delivery complicated by cord around neck, without compression, not applicable or unspecified; Z88.0 Allergy status to penicillin; Z3A.39 39 weeks gestation of pregnancy; Z37.0 Single live birth
CPT/HCPCS: 1961; 36415; 59025; 80307; 81001; 85025; 85027; 86850; 86870; 86900; 86901; 86920; 86922; 87635; 94760; 94799; C9803; J0131; J0690; J1100; J1756; J1885; J2250; J2270; J2370; J2405; J2590; J3010; J3490; J7120